=== PATIENT | male | born 1980 ===

== ENCOUNTER 2018-08-02 14:00 | Emergency (ER) | payer OTHER ==
[2018-08-02 14:33] VITALS: BP 123/73; PULSE 80; RESP 20; TEMP 98.2; O2SAT 98
--- NOTE | 2018-08-02 14:59 | C.PDOC ---
History Of Present Illness 37 y/o male presents to the ED for evaluation of right foot injury s/p fall yesterday. 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 He denies any head trauma or LOC. Patient now complains of pain and swelling to the area, rated a 7/10. 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 Otherwise patient denies any numbness, paresthesias, weakness, or other injury. Time Seen by Provider: 08/02/18 14:23 Chief Complaint (Nursing): Lower Extremity Problem/Injury History Per: Patient History/Exam Limitations: no limitations Onset/Duration Of Symptoms: Days (x 2) Current Symptoms Are (Timing): Still Present Past Medical History Reviewed: Historical Data, Nursing Documentation, Vital Signs Vital Signs: Last Vital Signs Temp 98.2 F 08/02/18 14:30 Pulse 80 08/02/18 14:30 Resp 20 08/02/18 14:30 BP 123/73 08/02/18 14:30 Pulse Ox 98 08/02/18 14:30 - Medical History PMH: No Chronic Diseases Surgical History: No Surg Hx Family History: States: Unknown Family Hx - Social History Hx Tobacco Use: No Hx Alcohol Use: Yes Hx Substance Use: No - Immunization History Hx Tetanus Toxoid Vaccination: No Hx Influenza Vaccination: No Hx Pneumococcal Vaccination: No Review Of Systems Except As Marked, All Systems Reviewed And Found Negative. Constitutional: Negative for: Fever, Weakness Cardiovascular: Negative for: Chest Pain Respiratory: Negative for: Shortness of Breath Musculoskeletal: Positive for: Foot Pain (right) Skin: Negative for: Rash, Lesions Neurological: Negative for: Weakness, Numbness Physical Exam - Physical Exam Appears: Non-toxic, No Acute Distress Skin: Warm, Dry, No Rash Head: Atraumatic, Normacephalic Eye(s): bilateral: Normal Inspection Neck: Normal ROM Chest: Symmetrical Respiratory: No Accessory Muscle Use Extremity: Normal ROM, Tenderness (to the lateral aspect of right ankle), Capillary Refill (< 2 sec), No Deformity (or ecchymosis), Swelling (to the lateral aspect of right ankle) Extremity: Right: Painful To Bear Weight, Bilateral: Other (Neurovascularly intact) Pulses: Left Dorsalis Pedis: Normal, Right Dorsalis Pedis: Normal Neurological/Psych: Oriented x3, Normal Motor, Normal Sensation ED Course And Treatment O2 Sat by Pulse Oximetry: 98 (RA) Pulse Ox Interpretation: Normal - Other Rad Right ankle x-ray X-Ray: Read By Radiologist Interpretation: Accession No. : [id number]. Patient Name / ID : LAYA SERRATO / [id number]. Exam Date : 08/02/2018 15:47:09 ( Approved ). Study Comment : Sex / Age : M / 37Y. Creator : Sreedhar Mcbride MD. Dictator : Sreedhar Mcbride MD. Coagulant Dipper : Truss Assembler : Sreedhar Mcbride MD. Approver2 : Report Date : 08/02/2018 16:08:00. My Comment : . Date of service: 08/02/2018. PROCEDURE: Right Ankle Radiographs. HISTORY: Status post fall. COMPARISON: No prior study available comparison. FINDINGS: BONES: No evidence of acute displaced fracture nor dislocation. The osseous structures appear intact however note is made of a tiny elliptical shaped corticated bony density within the adjacent to the inferior tip of the medial malleolus. This may represent some old posttraumatic mineralization or old posttraumatic avulsion talar dome intact. JOINTS: The ankle mortise is maintained. Small osteophyte seen arising from the anterior inferior tip of distal tibia tibiotalar articulation. SOFT TISSUES: There is mild lateral and medial soft tissue swelling. Probable small joint effusion. OTHER FINDINGS: None. IMPRESSION: No evidence of acute displaced fracture nor dislocation. Small elliptical shaped corticated bony density within the soft tissues immediately subjacent to the inferior tip of the medial malleolus which may represent some old posttraumatic mineralization or old avulsion injury.. If symptoms persist or occult fracture suspected clinically recommend repeat radiographs in 7-10 days as most fractures should become radiographically evident in this timeframe. Medical Decision Making Medical Decision Making: Plan: - 600 mg PO Motrin - Right ankle x-ray - Ankle wrapped with susan bandage Discussed results with patient Continue Motrin as needed for pain Rest, Elevation, Ice, and Compression Follow up with Ortho in 1-2 days for further evaluation Return to ED if pain persists or worsens for repeat imaging of occult fracture Patient verbalized understanding and is in agreement with plan Patient is stable for discharge Disposition Counseled Patient/Family Regarding: Diagnosis, Need For Followup, Rx Given - Disposition Referrals: Shashank Pugh MD [Staff Provider] - [facility] [Outside] [facility] [place] [Outside] Disposition: HOME/ ROUTINE Disposition Time: 16:32 Condition: STABLE Additional Instructions: Continue Motrin as needed for pain Rest, Elevation, Ice, and Compression Follow up with Ortho in 1-2 days for further evaluation Return to ED if pain persists or worsens for repeat imaging of occult fracture Prescriptions: Ibuprofen [Motrin] 600 mg PO Q8 PRN #30 tab PRN Reason: Pain, Moderate (4-7) Instructions: Ankle Sprain (DC) Forms: [employer] (Indonesian) Print Language: ALBANIAN - Clinical Impression Clinical Impression: Right ankle sprain - 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 - Scribe Statement The provider has reviewed the documentation as recorded by the Jignesh Beck All medical record entries made by the Scribe were at my direction and personally dictated by me. I have reviewed the chart and agree that the record accurately reflects my personal performance of the history, physical exam, medical decision making, and the department course for this patient. I have also personally directed, reviewed, and agree with the discharge instructions and disposition.
--- NOTE | 2018-08-02 16:11 | RAD ---
Date of service: 08/02/2018 PROCEDURE: Right Ankle Radiographs. HISTORY: Status post fall COMPARISON: No prior study available comparison FINDINGS: BONES: No evidence of acute displaced fracture nor dislocation. The osseous structures appear intact however note is made of a tiny elliptical shaped corticated bony density within the adjacent to the inferior tip of the medial malleolus. This may represent some old posttraumatic mineralization or old posttraumatic avulsion talar dome intact JOINTS: The ankle mortise is maintained. Small osteophyte seen arising from the anterior inferior tip of distal tibia tibiotalar articulation SOFT TISSUES: There is mild lateral and medial soft tissue swelling. Probable small joint effusion. OTHER FINDINGS: None. IMPRESSION: No evidence of acute displaced fracture nor dislocation. Small elliptical shaped corticated bony density within the soft tissues immediately subjacent to the inferior tip of the medial malleolus which may represent some old posttraumatic mineralization or old avulsion injury.. If symptoms persist or occult fracture suspected clinically recommend repeat radiographs in 7-10 days as most fractures should become radiographically evident in this timeframe.
== END 2018-08-02 16:57 | disposition home or self-care (01) ==
LOC: C.ER 14:00
DX: S93.401A Sprain of unspecified ligament of right ankle, initial encounter (principal); W01.0XXA Fall on same level from slipping, tripping and stumbling without subsequent striking against object, initial encounter; Y93.01 Activity, walking, marching and hiking